=== PATIENT | female | born 1995 | race American Indian/Alaskan Native ===

== ENCOUNTER 2017-05-16 23:13 | Inpatient (IN) | payer MEDICAID ==
[2017-05-17] MEDS ORDERED: PITOCin/NS 20 UNIT/1000ML DRIP 20,000 MILLIUNITS/1,000 ML BAG IV ONE (00:41)
[2017-05-17] MEDS ORDERED: REGLAN ONE ×2 (00:41→05:39)
[2017-05-17] MEDS ORDERED: LACTATED RINGERS 2,000 ML ONE (00:41)
[2017-05-17] MEDS ORDERED: BICITRA ONE (00:41)
[2017-05-17] MEDS ORDERED: PEPCID IV ONE ×2 (00:42→00:48)
[2017-05-17] MEDS ORDERED: ANCEF/STERILE WATER 2 GM/20 ML 2 GM/20 ML SYRINGE IV ONE (00:42)
[2017-05-17] MEDS ORDERED: BICITRA PO ONE (00:48)
[2017-05-17] MEDS ORDERED: REGLAN IV ONE (00:48)
[2017-05-17] MEDS ORDERED: PITOCin/NS 20 UNIT/1000ML DRIP 20 UNITS/1,000 ML BAG IV SCH ×2 (01:00→04:00)
[2017-05-17] MEDS ORDERED: ANCEF/STERILE WATER 2 GM/20 ML 2 GM/20 ML SYRINGE IV NR (01:00)
[2017-05-17] MEDS ORDERED: LACTATED RINGERS 1,000 ML IV SCH (01:00)
[2017-05-17 01:06] LABS: Basophils % (Auto) 0.2 % (0.0-1.8); Eosinophils % (Auto) 0.4 % (0.0-4.3); Hematocrit 31.1 % (30.3-42.9); Hemoglobin 10.1 gm/dl (10.1-14.3); Mean Corpuscular HGB Conc 33 % (30-34); Mean Corpuscular Hemoglobin 27 pg (28-32); Mean Corpuscular Volume 84 fl (79-97); Platelet Count 191 K/mm3 (140-440); Red Blood Count 3.71 M/mm3 (3.65-5.03); Red Cell Distribution Width 15.3 % (13.2-15.2); White Blood Count 10.8 K/mm3 (4.5-11.0)
--- NOTE | 2017-05-17 01:59 | History and Physical Report ---
History of Present Illness Date of examination: 05/17/17 Date of admission: 05/17/17 00:50 Chief complaint: Labor History of present illness: Pt is a 22yo BF EDC 05/26/17; EGA 38 5/7 weeks presents to L&D complaining of RUC's q 2-3 mins. She was scheduled for a Repeat C Section 05/19/17 but since she is currently in labor, we will proceed with her C Section now. She received care at [facility], however records are not available and GBS is unknown. Past History Past Medical History: no pertinent history Past Surgical History: section Social history: no significant social history, single - Obstetrical History Expected Date of Delivery: 05/26/17 Actual Gestation: 38 Week(s) 5 Day(s) : 3 Medications and Allergies Allergies Allergy/AdvReac Type Severity Reaction Status Date / Time No Known Allergies Allergy Verified 05/13/13 18:03 Home Medications Medication Instructions Recorded Confirmed Last Taken Type Vit/Iron Fum/Folic AC 1 each PO QDAY #90 tablet 04/05/13 11/12/1311/11 08:00 Rx [ Vitamin Tablet] Ahn062/Iron Fum/Folic/Docusate 1 each PO QDAY #30 tablet 11/13/13 Unknown Rx [ 19 Tablet] Clindamycin [Clindamycin CAP] 600 mg PO BID #28 capsule 02/18/15 Unknown Rx ALBUTEROL Inhaler [ProAir HFA 2 puff IH QID PRN #1 inhalation 12/01/15 Unknown Rx Inhaler] Acetaminophen [Tylenol] 1,000 mg PO Q6HR #30 tablet 12/01/15 Unknown Rx Vit-Fe Fumar-FA [ 1 tab PO QDAY #30 tablet 12/01/15 Unknown Rx Vitamin] Ferrous Sulfate [Feosol 325 MG tab] 325 mg PO BID #60 tablet 05/17/17 Unknown Rx HYDROcodone/APAP 5-325 [[place] 1 each PO Q6HR PRN #30 tablet 05/17/17 Unknown Rx 5/325] Ibuprofen [Motrin] 800 mg PO Q8HR PRN #30 tablet 05/17/17 Unknown Rx Vit Calc,Iron,Folic 1 each PO DAILY #30 tablet 05/17/17 Unknown Rx [ Vitamins] Active Meds: Active Medications Lactated Ringer's (Lactated Ringers) 1,000 mls @ 2,250 mls/hr IV PREOP DONNA Stop: 05/18/17 01:27 Last Admin: 05/17/17 01:00 Dose: 2,250 mls/hr Oxytocin/Sodium Chloride (Pitocin/Ns 20 Unit/1000ml Drip) 20 units in 1,000 mls @ 0 mls/hr IV TITR DONNA PRN Reason: As Directed Review of Systems All systems: negative - Vital Signs Vital signs: Vital Signs Temp Resp 98.0 F 18 05/16/17 23:45 05/16/17 23:45 Temp Pulse Resp BP Pulse Ox 98.0 F 300 H 18 82 L 05/16/17 23:45 05/17/17 01:55 05/16/17 23:45 05/17/17 01:55 - Physical Exam Breasts: Positive: deferred Cardiovascular: Regular rate Lungs: Positive: Clear to auscultation Abdomen: Positive: normal appearance Genitourinary (Female): Positive: normal external genitalia Vagina: Positive: normal moisture Uterus: Positive: enlarged Extremities: Positive: normal - Obstetrical FHR: category 1 Uterine Contraction Monitor Mode: External Cervical Dilatation: 1.5 Cervical Effacement Percentage: 50 station: -2 Uterine Contraction Pattern: Regular Uterine Tone Measurement Phase: Contraction Uterine Contraction Intensity: Strong/Firm Results Result Diagrams: 05/17/17 00:53 Abnormal lab results 05/17/17 Range/Units 00:53 MCH 27 L (28-32) pg RDW 15.3 H (13.2-15.2) % Seg Neutrophils % 72.3 H (40.0-70.0) % Seg Neutrophils # 7.8 H (1.8-7.7) K/mm3 All other labs normal. Assessment and Plan - Patient Problems (1) 38 weeks gestation of Onset Date: 05/17/17 Current Visit: Yes Status: Acute Plan to address problem: A: IUP @ 38 5/7 weeks in labor Previous C Section x 2 P: Admit to L&D for repeat C Section Obtain Medical records (2) Previous section Onset Date: 05/17/17 Current Visit: No Status: Acute
[2017-05-17] MEDS ORDERED: WATER FOR IRRIG STERILE IR ONE (02:00)
[2017-05-17] MEDS ORDERED: NACL 0.9% IR ONE (02:00)
[2017-05-17] MEDS ORDERED: MORPHINE ONE (02:46)
[2017-05-17] MEDS ORDERED: TORADOL ONE (03:14)
[2017-05-17] MEDS ORDERED: NORCO 5/325 PO PRN (03:55)
[2017-05-17] MEDS ORDERED: SENOKOT PO PRN (03:55)
[2017-05-17] MEDS ORDERED: MILK OF MAGNESIA PO PRN (03:55)
[2017-05-17] MEDS ORDERED: TORADOL IV PRN (03:55)
[2017-05-17] MEDS ORDERED: TUCKS PAD TP PRN (03:55)
[2017-05-17] MEDS ORDERED: NARCAN 0.4 MG/1 ML IV PRN (03:55)
[2017-05-17] MEDS ORDERED: LANSINOH TP PRN (03:55)
[2017-05-17] MEDS ORDERED: PHENERGAN PR PRN (03:55)
[2017-05-17] MEDS ORDERED: TYLENOL PO PRN (03:55)
[2017-05-17] MEDS ORDERED: ZOFRAN IV PRN (03:55)
--- NOTE | 2017-05-17 03:55 | Operative Report ---
Operative Report Operative Report: Date of procedure: 05/17/2017 Pre-operative diagnosis: 1. Intrauterine at 38-5/7 weeks in labor 2. Previous 2 Post-operative diagnosis: Same Procedure name(s): Repeat low transverse section Surgeon: Tyler Chi MD Railroad Conductor: None Anesthesia: Spinal anesthesia by Dr. Liang EBL: 500 mL Findings: A 2790 g male Apgars 8 at 1 minute and 9 at 5 minutes. Clear amniotic fluid. Normal uterus. Normal tubes and ovaries bilaterally. Procedure: After the patient was prepped and draped in usual sterile fashion, and after satisfactory level of epidural anesthesia was obtained, the skin knife was used to make a transverse skin incision through the previous skin scars. The incision was excised down to layer of the fascia, which was nicked in the midline and extended laterally using the Bovie cautery. The rectus muscles were dissected off the rectus fascia both superiorly and inferiorly. The rectus bellies in the midline, and the peritoneum was entered under direct visualization. The peritoneal incision was extended superiorly and inferiorly. A bladder flap was created and the bladder blade was then placed. The uterus was scored in a curvilinear linear fashion, entered in the midline revealing clear amniotic fluid. The infant's head was delivered onto the surgical field, and the oropharynx and nasopharynx were bulb suctioned. The rest of the 's body was delivered, cord was doubly clamped and cut and the infant was handed to the waiting respiratory team. Cord blood was then obtained. The placenta was manually removed from the uterus, and the uterus removed from its normal anatomical position. After gentle uterine lavage, the incision was inspected and found to be without extensions. It was then closed in 2 layers using 0 Vicryl suture in a running interlocking fashion, the second layer imbricating the first. After good hemostasis was achieved, copious amounts or irrigation was performed, and the gutters were suctioned free of blood and blood clots. The Tisseel sealant was sprayed across the uterine incision. The uterus was then returned to its normal anatomical position, and after excellent hemostasis assured, the peritoneum was re-approximated using 3- 0 Vicryl suture in a running interlocking fashion, and then the rectus muscles were re-approximated using 3-0 Vicryl suture in a [id number] configuration. The fascia was then re-approximated using 0 Vicryl suture in running interlocking fashion. The subcutaneous layer was made hemostatic using Bovie cautery, the Tisseel sealant was sprayed across the fascial incision and the skin edges re-approximated using 4-0 Vicryl suture in a sub-cuticular fashion. Patient tolerated the procedure well was transported to recovery in stable condition.
[2017-05-17] MEDS ORDERED: SODIUM CHLORIDE FLUSH SYRINGE 10 ML IV PRN (04:00)
[2017-05-17] MEDS ORDERED: D5LR 1,000 ML IV SCH (04:00)
[2017-05-17] MEDS ORDERED: REGLAN PO NR (06:00)
[2017-05-17] MEDS: ANCEF/NS 1 GM/50 ML 1 GM/50 ML BAG IV SCH ×2 (10:30→17:43)
[2017-05-17] MEDS: BENADRYL IV PRN ×2 (12:30→23:31)
[2017-05-17] MEDS: PROVENTIL IH PRN (14:51)
[2017-05-17 15:29] LABS: Hematocrit 26.1 % (30.3-42.9); Hemoglobin 8.9 gm/dl (10.1-14.3)
[2017-05-17] MEDS: FEOSOL PO SCH (23:31)
[2017-05-17] MEDS: MOTRIN PO PRN (23:31)
[2017-05-18] MEDS ORDERED: M-M-R II VACCINE SUB-Q ONE (03:57)
[2017-05-18] MEDS: MOTRIN PO PRN ×3 (05:44→23:52)
[2017-05-18] MEDS ORDERED: BOOSTRIX IM ONE (06:00)
--- NOTE | 2017-05-18 11:23 | Progress Note ---
Assessment and Plan - Patient Problems (1) 38 weeks gestation of Onset Date: 05/17/17 Current Visit: Yes Status: Resolved (2) Previous section Onset Date: 05/17/17 Current Visit: No Status: Resolved (3) Status post repeat low transverse section Onset Date: 05/18/17 Current Visit: No Status: Resolved Plan to address problem: A: S/P Repeat C Section - POD #1 Doing well Asymptomatic anemia - stable P: Continue RPOC Anticipate discharge to home in 24-48hrs Subjective - Subjective Date of service: 05/18/17 Principal diagnosis: s/p Repeat C Section - POD #1 Interval history: Pt is feeling well without complaints. Bleeding improved, and she is tolerating a reg diet without nausea or vomiting. Patient reports: appetite normal, voiding normally, pain well controlled, flatus , ambulating normally : doing well, bottle feeding Objective - Vital Signs Latest vital signs: Vital Signs Temp Pulse Pulse Resp Resp BP BP 05/18/17 08:08 98.2 F 76 18 109/55 05/18/17 06:44 18 05/18/17 05:44 18 05/18/17 02:13 98.7 F 05/18/17 00:31 18 05/17/17 23:31 18 05/17/17 23:26 99.7 F H 81 18 105/65 05/17/17 20:53 97.4 F L 83 18 05/17/17 16:40 98.0 F 85 18 105/57 05/17/17 14:58 82 14 05/17/17 14:50 71 16 05/17/17 12:25 98.7 F 75 18 100/47 BP Pulse Ox 05/18/17 08:08 99 05/18/17 06:44 05/18/17 05:44 05/18/17 02:13 05/18/17 00:31 05/17/17 23:31 05/17/17 23:26 99 05/17/17 20:53 98/56 99 05/17/17 16:40 05/17/17 14:58 05/17/17 14:50 05/17/17 12:25 Intake and Output 05/17/17 05/18/17 05/18/17 22:59 06:59 14:59 Intake Total 120 240 Output Total 1150 Balance 120 -910 Intake: Oral 120 Intake, Free Water 240 Output: Urine 1150 Void 1150 Other: Total, Intake Amount 120 Total, Output Amount 500 # Voids Void 1 - Exam Cardiovascular: Present: Regular rate Lungs: Present: Clear to auscultation Abdomen: Present: normal appearance, soft Uterus: Present: normal, firm, fundal height below umbilicus Extremities: Present: normal Incision: Present: normal, dry, intact, dressed - Labs Labs: Abnormal lab results 05/17/17 Range/Units 15:06 Hgb 8.9 L (10.1-14.3) gm/dl Hct 26.1 L (30.3-42.9) % Laboratory Tests 05/17/17 05/17/17 05/17/17 00:53 00:53 15:06 WBC 10.8 RBC 3.71 Hgb 10.1 8.9 L Hct 31.1 26.1 L MCV 84 MCH 27 L MCHC 33 RDW 15.3 H Plt Count 191 Lymph % (Auto) 20.4 [place] % (Auto) 6.7 Eos % (Auto) 0.4 Baso % (Auto) 0.2 Lymph # 2.2 Evans # 0.7 Eos # 0.0 Baso # 0.0 Seg Neutrophils % 72.3 H Seg Neutrophils # 7.8 H Blood Type O POSITIVE Antibody Screen Negative
[2017-05-18] MEDS: PERCOCET 5/325 PO PRN (14:43)
[2017-05-18] MEDS: MYLICON PO PRN (14:43)
[2017-05-18] MEDS: PRENATAL VITAMIN PO SCH (14:43)
[2017-05-18] MEDS: FEOSOL PO SCH (23:52)
[2017-05-19] MEDS: MOTRIN PO PRN ×2 (05:52→17:57)
--- NOTE | 2017-05-19 08:07 | Progress Note ---
Assessment and Plan A: S/P Repeat C Section - POD #2 Doing well Asymptomatic anemia - stable P: Continue RPOC Anticipate discharge to home in 24-48hrs - Patient Problems (1) Status post repeat low transverse section Onset Date: 05/18/17 Current Visit: No Status: Resolved Subjective - Subjective Date of service: 05/19/17 Principal diagnosis: s/p Repeat C Section - POD #2 Interval history: Patient seen and examined, stable doing well with no issues Patient reports: appetite normal, voiding normally, pain well controlled, flatus , ambulating normally, no dizzy ambulation, no nauseated [place]: doing well Objective - Vital Signs Latest vital signs: Vital Signs Temp Pulse Resp BP BP Pulse Ox 05/19/17 06:23 18 05/19/17 05:52 18 05/19/17 01:33 98.2 F 69 16 104/66 99 05/19/17 00:52 18 05/18/17 23:52 18 05/18/17 16:14 98.2 F 79 20 115/70 99 05/18/17 11:45 98.2 F 81 20 116/71 98 05/18/17 08:08 98.2 F 76 18 109/55 99 Intake and Output 05/18/17 05/19/17 05/19/17 23:59 07:59 15:59 Intake Total 240 840 Balance 240 840 Intake: Oral 120 480 Intake, Free Water 120 360 Other: Total, Intake Amount 120 480 # Voids Void 1 1 - Exam Abdomen: Present: normal appearance, soft. Absent: distention, tenderness, guarding, rigidity Extremities: Present: normal Incision: Present: dry, intact
--- NOTE | 2017-05-19 08:09 | Discharge Summary ---
Providers - Providers Date of Admission: 05/17/17 00:50 Date of discharge: 05/20/17 Attending physician: REKHA RAMIREZ Primary care physician: REKHA RAMIREZ Hospitalization Reason for admission: active labor, section Delivery: Procedure: repeat low transverse Incision: dry, intact Other procedures: none complications: none Discharge diagnosis: IUP at term delivered [place] baby: male Hospital course: Uncomplicated postoperative course Condition at discharge: Good Disposition: DC-01 TO HOME OR SELFCARE - Discharge Diagnoses (1) Status post repeat low transverse section Status: Resolved Plan - Discharge Medications Prescriptions: Ferrous Sulfate [Feosol 325 MG tab] 325 mg PO BID #60 tablet HYDROcodone/APAP 5-325 [[place] 5/325] 1 each PO Q6HR PRN #30 tablet PRN Reason: Pain Ibuprofen [Motrin] 800 mg PO Q8HR PRN #30 tablet PRN Reason: Moder Pain Unrelieved By [place] Vit Calc,Iron,Folic [ Vitamins] 1 each PO DAILY #30 tablet - Provider Discharge Summary Activity: no sex for 6 weeks, no heavy lifting 4 weeks, no strenuous exercise Diet: routine Additional instructions: [] Smoking cessation referral if applicable(refer to patient education folder for contact #) [] Refer to [facility]'s [facility] Booklet Call your doctor immediately for: * Fever > 100.5 * Heavy vaginal bleeding ( >1 pad per hour) * Severe persistent headache * Shortness of breath * Reddened, hot, painful area to leg or breast * Drainage or odor from incision. * Keep incision clean and dry at all times and follow doctor's instructions regarding bathing/showering - Follow up plan Follow up: REKHA RAMIREZ MD [Primary Care Provider] - 7 Days Forms: [facility] Discharge Summary, Discharge Signature Page
[2017-05-19] MEDS: PERCOCET 5/325 PO PRN ×2 (09:52→17:56)
[2017-05-19] MEDS: FEOSOL PO SCH (09:54)
[2017-05-19] MEDS: PRENATAL VITAMIN PO SCH (09:54)
[2017-05-19] MEDS: MYLICON PO PRN (17:55)
[2017-05-20] MEDS: MOTRIN PO PRN ×3 (00:12→13:30)
[2017-05-20] MEDS: PERCOCET 5/325 PO PRN ×3 (00:12→13:29)
[2017-05-20] MEDS: PRENATAL VITAMIN PO SCH (09:18)
[2017-05-20] MEDS: FEOSOL PO SCH (09:18)
[2017-05-20] MEDS: PROVENTIL IH PRN (09:46)
[2017-05-20 19:00] VITALS: BP 110/73
== END 2017-05-20 14:00 | disposition home or self-care (01) | DRG 766 ==
LOC: TRG 23:13 → APU 05-17 00:50 → OB 05-17 06:47
PROVIDERS: ADMIT Obstetrics & Gynecology; ATTEND Obstetrics & Gynecology
PROC: 10D00Z1 Extraction of Products of Conception, Low, Open Approach (ICD-10-PCS; principal; 2017-05-17)
PROC: 3E0234Z Introduction of Serum, Toxoid and Vaccine into Muscle, Percutaneous Approach (ICD-10-PCS; 2017-05-18)
DX: O34.211 Maternal care for low transverse scar from previous cesarean delivery (principal); Z3A.38 38 weeks gestation of pregnancy; Z37.0 Single live birth; O90.81 Anemia of the puerperium; D64.9 Anemia, unspecified; Z23 Encounter for immunization
CPT/HCPCS: 36415; 85014; 85018; 85025; 86850; 86900; 86901; 90471; 90707; 90715; 94640; 99211; C9250; G0463; J0690; J1200; J1885; J2270; J2405; J2590; J2765; J7120; J7121

== ENCOUNTER 2017-12-03 20:20 | Emergency (ER) | payer MEDICAID ==
[2017-12-03 21:01] VITALS: BP 117/73
[2017-12-03 21:20] LABS: Basophils % (Auto) 0.4 % (0.0-1.8); Eosinophils # (Auto) 0.1 K/mm3 (0.0-0.4); Eosinophils % (Auto) 0.8 % (0.0-4.3); Hematocrit 36.4 % (30.3-42.9); Hemoglobin 11.7 gm/dl (10.1-14.3); Lymphocytes # (Auto) 2.2 K/mm3 (1.2-5.4); Mean Corpuscular HGB Conc 32 % (30-34); Mean Corpuscular Hemoglobin 26 pg (28-32); Mean Corpuscular Volume 81 fl (79-97); Monocytes # (Auto) 0.4 K/mm3 (0.0-0.8); Platelet Count 300 K/mm3 (140-440); Red Blood Count 4.51 M/mm3 (3.65-5.03); Red Cell Distribution Width 14.4 % (13.2-15.2)
[2017-12-03 21:39] LABS: BUN/Creatinine Ratio 17; Blood Urea Nitrogen 10 mg/dL (7-17); Calcium 9.2 mg/dL (8.4-10.2); Hemolysis Index 2
== END 2017-12-03 23:00 | disposition left against medical advice (07) ==
LOC: ED 20:20
DX: R07.9 Chest pain, unspecified (principal); Z53.21 Procedure and treatment not carried out due to patient leaving prior to being seen by health care provider
CPT/HCPCS: 36415; 80048; 84484; 85025; 93005; 93010

== ENCOUNTER 2019-05-17 22:24 | Emergency (ER) | payer SELFPAY ==
--- NOTE | 2019-05-17 22:31 | Emergency Department Report ---
Blank Doc - Documentation Documentation: 24-year-old female that is 14 weeks with vaginal discharge and pelvic pain. Denies any vaginal bleeding. Does follow-up with OB and had ultrasound that was normal. This initial assessment/diagnostic orders/clinical plan/treatment(s) is/are subject to change based on patient's health status, clinical progression and re- assessment by fellow clinical providers in the ED. Further treatment and workup at subsequent clinical providers discretion. Patient/guardians urged not to elope from the ED as their condition may be serious if not clinically assessed and managed. Initial orders include: 1- Patient sent to [facility] for further evaluation and treatment 2- pelvic exam to be done 3- UA
[2019-05-17 23:28] LABS: Bilirubin,Urine NEG (Negative); Blood,Urine NEG (Negative); Color,Urine Straw (Yellow); Mucus,Urine FEW /HPF; Protein,Urine <15 mg/dL mg/dL (Negative); Urobilinogen,Urine < 2.0 mg/dL (<2.0)
[2019-05-18] MEDS ORDERED: ACETAMINOPHEN 325 MG TAB PO ONE (00:37)
[2019-05-18] MEDS ORDERED: ONDANSETRON 4 MG/2 ML INJ IV ONE (00:37)
--- NOTE | 2019-05-18 00:38 | Emergency Department Report ---
ED General Adult HPI - General Chief complaint: Abdominal Pain Stated complaint: ABDOMINAL PAIN/VOMITTING BLOOD Time Seen by Provider: 05/17/19 22:30 Source: patient, RN notes reviewed Mode of arrival: Ambulatory Limitations: No Limitations - History of Present Illness Initial comments: This is a 24-year-old female. This patient is not known to this provider previously. 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 She is 5, para 3. Last menstrual period is February 03. Presents to the ER with a complaint of right lower quadrant pain that radiates to the back. This is associated with nonbloody, nonbilious emesis 2. No fever. No complaint of vaginal discharge to this provider. No urinary symptoms. She's not had pain like this in the past. To me, she makes no complaint of vomiting blood or defecating blood. -: Gradual Location: abdomen Radiation: back, flank Quality: aching Consistency: intermittent Improves with: rest Worsens with: movement - Related Data Previous Rx's Medication Instructions Recorded Last Taken Type Vit/Iron Fum/Folic AC 1 each PO QDAY #90 tablet 04/05/13 11/11/13 08:00 Rx [ Vitamin Tablet] Leh689/Iron Fum/Folic/Docusate 1 each PO QDAY #30 tablet 11/13/13 Unknown Rx [ 19 Tablet] Clindamycin [Clindamycin CAP] 600 mg PO BID #28 capsule 02/18/15 Unknown Rx ALBUTEROL Inhaler (OR & NICU) 2 puff IH QID PRN #1 inhalation 12/01/15 Unknown Rx [ProAir HFA Inhaler] Acetaminophen [Tylenol] 1,000 mg PO Q6HR #30 tablet 12/01/15 Unknown Rx Vit-Fe Fumar-FA [ 1 tab PO QDAY #30 tablet 12/01/15 Unknown Rx Vitamin] Ferrous Sulfate [Feosol 325 MG tab] 325 mg PO BID #60 tablet 05/17/17 Unknown Rx Vit Calc,Iron,Folic 1 each PO DAILY #30 tablet 05/17/17 Unknown Rx [ Vitamins] Acetaminophen [Non-Aspirin Extra 500 mg PO Q6HR PRN #30 tablet 05/18/19 Unknown Rx Strength] Doxylamine Succinate/Vit B6 1 each PO QHS PRN #30 tablet. 05/18/19 Unknown Rx [Arie Woodall 10-10 mg Tablet] Nicole Root [Nicole] 250 mg PO QID PRN #30 capsule 05/18/19 Unknown Rx Allergies Allergy/AdvReac Type Severity Reaction Status Date / Time ibuprofen Allergy Swelling Verified 12/03/17 21:04 OF THE EYES ED Review of Systems ROS: Stated complaint: ABDOMINAL PAIN/VOMITTING BLOOD Other details as noted in HPI Constitutional: denies: fever Eyes: denies: eye discharge ENT: denies: congestion Respiratory: denies: wheezing Cardiovascular: denies: chest pain Gastrointestinal: abdominal pain, nausea, vomiting Genitourinary: denies: dysuria, frequency, hematuria Musculoskeletal: back pain Skin: denies: lesions Neurological: denies: weakness Psychiatric: anxiety Hematological/Lymphatic: denies: easy bleeding ED Past Medical Hx - Past Medical History Hx Hypertension: No Hx Congestive Heart Failure: No Hx Diabetes: No Hx Deep Vein Thrombosis: No Hx Renal Disease: No Hx Sickle Cell Disease: No Hx Seizures: No Hx Asthma: Yes (albuterol inhaler -1 wk ago) Hx COPD: No Hx HIV: No - Surgical History Additional Surgical History: x2 - Social History Smoking Status: Never Smoker Substance Use Type: None - Medications Home Medications: Home Medications Medication Instructions Recorded Confirmed Last Taken Type Vit/Iron Fum/Folic AC 1 each PO QDAY #90 tablet 04/05/13 11/12/13 11/11/13 08:00 Rx [ Vitamin Tablet] [id number]/Iron Fum/Folic/Docusate 1 each PO QDAY #30 tablet 11/13/13 Unknown Rx [ 19 Tablet] Clindamycin [Clindamycin CAP] 600 mg PO BID #28 capsule 02/18/15 Unknown Rx ALBUTEROL Inhaler (OR & NICU) 2 puff IH QID PRN #1 inhalation 12/01/15 Unknown Rx [ProAir HFA Inhaler] Acetaminophen [Tylenol] 1,000 mg PO Q6HR #30 tablet 12/01/15 Unknown Rx Vit-Fe Fumar-FA [ 1 tab PO QDAY #30 tablet 12/01/15 Unknown Rx Vitamin] Ferrous Sulfate [Feosol 325 MG tab] 325 mg PO BID #60 tablet 05/17/17 Unknown Rx Vit Calc,Iron,Folic 1 each PO DAILY #30 tablet 05/17/17 Unknown Rx [ Vitamins] Acetaminophen [Non-Aspirin Extra 500 mg PO Q6HR PRN #30 tablet 05/18/19 Unknown Rx Strength] Doxylamine Succinate/Vit B6 1 each PO QHS PRN #30 tablet. 05/18/19 Unknown Rx [Dicisigis Dr 10-10 mg Tablet] Nicole Root [Nicole] 250 mg PO QID PRN #30 capsule 05/18/19 Unknown Rx ED Physical Exam - General Limitations: No Limitations General appearance: alert, in no apparent distress - Head Head exam: Present: atraumatic, normocephalic - Eye Eye exam: Present: normal appearance, EOMI. Absent: nystagmus - ENT ENT exam: Present: normal exam, normal orophraynx, mucous membranes moist, normal external ear exam - Neck Neck exam: Present: normal inspection, full ROM. Absent: tenderness, meningismus - Respiratory Respiratory exam: Present: normal lung sounds bilaterally. Absent: respiratory distress - Cardiovascular Cardiovascular Exam: Present: regular rate, normal rhythm, normal heart sounds. Absent: bradycardia, tachycardia, irregular rhythm, systolic murmur, diastolic murmur, rubs, gallop - GI/Abdominal GI/Abdominal exam: Present: soft, tenderness, normal bowel sounds, other (there is no right upper quadrant tenderness. There is right lower quadrant tenderness. There is no rebound. There is negative Rovsing sign.). Absent: distended, guarding, rebound, rigid, pulsatile mass - Extremities Exam Extremities exam: Present: normal inspection, full ROM, other (2+ pulses noted in the bilateral upper, lower extremities. There is no long bone tenderness. Musculoskeletal compartments are soft. The pelvis is stable.). Absent: pedal edema, calf tenderness - Back Exam Back exam: Present: normal inspection, full ROM. Absent: tenderness, CVA tenderness (R), CVA tenderness (L), paraspinal tenderness, vertebral tenderness - Neurological Exam Neurological exam: Present: alert, oriented X3, other (there is no facial droop. The tongue is midline. Extraocular movements are intact bilaterally. Patient speaking in full complete sentences. Shoulder shrug is intact bilaterally. Hearing is grossly intact bilaterally. Visual acuity intact to finger counting and color perception at a close distance. 5/5 strength 4 extremities. Sensation intact to light touch in 4 extremities.). Absent: motor sensory deficit - Psychiatric Psychiatric exam: Present: normal affect, normal mood - Skin Skin exam: Present: warm, dry, intact, normal color. Absent: rash ED Course Vital Signs 05/17/19 05/18/19 22:31 00:50 Temperature 98.7 F Pulse Rate 79 Respiratory 18 18 Rate Blood Pressure 118/77 O2 Sat by Pulse 100 Oximetry - Reevaluation(s) Reevaluation #1: 05/18/19 01:36 Differential diagnosis, including not limited to: Constipation, ovarian cyst, urinary tract infection, renal colic, appendicitis, round ligament pain, ovarian torsion Assessment and plan: 24-year-old female with right lower quadrant pain that radiates to the back, nausea and vomiting. She is afebrile with reassuring vital signs. She is right lower quadrant tenderness. She is tolerating liquid feeds, and pain was somewhat improved after Tylenol. Does not have a leukocytosis, fever, lactic acidosis. Urinalysis not consistent with urinary tract infection. Patient had ultrasound performed of right flank, right lower quadrant, and obstetrics related study. Interpretation is pending at this time. Reevaluation #2: 05/18/19 02:50 Patient reassessed multiple times. Belly is soft on repeat examination. She is requesting water. Ultrasound shows no surgical abnormalities at this time. The health information technologist communicated to me that while performing her ul trasound, the patient did have reproducible lower abdominal tenderness when the probe was applied to the portion of the uterus to be hypoechoic segment. The radiologist's interpretation is reviewed and appreciated. The patient is counseled to closely follow up with her outpatient [facility] doctor for these incidental findings. She indicates that she is reliable to follow-up. At this point in time, based off of the improved exam with acetaminophen, lack of fever, unremarkable laboratory studies, aforementioned ultrasound findings, I think appendicitis is very unlikely at this time. ED Medical Decision Making - Lab Data Result diagrams: 05/18/19 00:40 05/18/19 00:40 Vital Signs 05/17/19 05/18/19 22:31 00:50 Temperature 98.7 F Pulse Rate 79 Respiratory 18 18 Rate Blood Pressure 118/77 O2 Sat by Pulse 100 Oximetry Lab Results 05/17/19 05/18/19 05/18/19 Range/Units 22:53 00:40 00:40 WBC 8.5 (4.5-11.0) K/mm3 RBC 3.74 (3.65-5.03) M/mm3 Hgb 10.8 (10.1-14.3) gm/dl Hct 32.5 (30.3-42.9) % MCV 87 (79-97) fl MCH 29 (28-32) pg MCHC 33 (30-34) % RDW 16.4 H (13.2-15.2) % Plt Count 245 (140-440) K/mm3 Lymph % (Auto) 25.2 (13.4-35.0) % Carlton % (Auto) 5.0 (0.0-7.3) % Eos % (Auto) 0.6 (0.0-4.3) % Baso % (Auto) 0.3 (0.0-1.8) % Lymph # 2.1 (1.2-5.4) K/mm3 Carlton # 0.4 (0.0-0.8) K/mm3 Eos # 0.1 (0.0-0.4) K/mm3 Baso # 0.0 (0.0-0.1) K/mm3 Seg Neutrophils % 68.9 (40.0-70.0) % Seg Neutrophils # 5.9 (1.8-7.7) K/mm3 PT 14.7 (12.2-14.9) Sec. INR 1.16 H (0.87-1.13) APTT 27.4 (24.2-36.6) Sec. Sodium (137-145) mmol/L Potassium (3.6-5.0) mmol/L Chloride (98-107) mmol/L Carbon Dioxide (22-30) mmol/L Anion Gap mmol/L BUN (7-17) mg/dL Creatinine (0.7-1.2) mg/dL Estimated GFR ml/min BUN/Creatinine Ratio % Glucose (65-100) mg/dL Lactic Acid (0.7-2.0) mmol/L Calcium (8.4-10.2) mg/dL Magnesium (1.7-2.3) mg/dL Total Bilirubin (0.1-1.2) mg/dL AST (5-40) units/L ALT (7-56) units/L Alkaline Phosphatase (35-129) units/L Albumin (3.9-5) g/dL Lipase (13-60) units/L Urine Color Straw (Yellow) Urine Turbidity Clear (Clear) Urine pH 7.0 (5.0-7.0) Ur Specific [place] 1.005 (1.003-1.030) Urine Protein <15 mg/dl (Negative) mg/dL Urine Glucose (UA) Neg (Negative) mg/dL Urine Ketones Neg (Negative) mg/dL Urine Blood Neg (Negative) Urine Nitrite Neg (Negative) Urine Bilirubin Neg (Negative) Urine Urobilinogen < 2.0 (<2.0) mg/dL Ur Leukocyte Esterase Neg (Negative) Urine WBC (Auto) 2.0 (0.0-6.0) /HPF Urine RBC (Auto) 1.0 (0.0-6.0) /HPF U Epithel Cells (Auto) < 1.0 (0-13.0) /HPF Urine Mucus Few /HPF 05/18/19 05/18/19 Range/Units 00:40 00:40 WBC (4.5-11.0) K/mm3 RBC (3.65-5.03) M/mm3 Hgb (10.1-14.3) gm/dl Hct (30.3-42.9) % MCV (79-97) fl MCH (28-32) pg MCHC (30-34) % RDW (13.2-15.2) % Plt Count (140-440) K/mm3 Lymph % (Auto) (13.4-35.0) % Carlton % (Auto) (0.0-7.3) % Eos % (Auto) (0.0-4.3) % Baso % (Auto) (0.0-1.8) % Lymph # (1.2-5.4) K/mm3 Carlton # (0.0-0.8) K/mm3 Eos # (0.0-0.4) K/mm3 Baso # (0.0-0.1) K/mm3 Seg Neutrophils % (40.0-70.0) % Seg Neutrophils # (1.8-7.7) K/mm3 PT (12.2-14.9) Sec. INR (0.87-1.13) APTT (24.2-36.6) Sec. Sodium 136 L (137-145) mmol/L Potassium 3.8 (3.6-5.0) mmol/L Chloride 100.6 (98-107) mmol/L Carbon Dioxide 26 (22-30) mmol/L Anion Gap 13 mmol/L BUN 8 (7-17) mg/dL Creatinine 0.6 L (0.7-1.2) mg/dL Estimated GFR > 60 ml/min BUN/Creatinine Ratio 13 % Glucose 95 (65-100) mg/dL Lactic Acid 0.70 (0.7-2.0) mmol/L Calcium 9.2 (8.4-10.2) mg/dL Magnesium 1.60 L (1.7-2.3) mg/dL Total Bilirubin < 0.20 (0.1-1.2) mg/dL AST 16 (5-40) units/L ALT 8 (7-56) units/L Alkaline Phosphatase 60 (35-129) units/L Albumin 3.9 (3.9-5) g/dL Lipase 33 (13-60) units/L Urine Color (Yellow) Urine Turbidity (Clear) Urine pH (5.0-7.0) Ur Specific [place] (1.003-1.030) Urine Protein (Negative) mg/dL Urine Glucose (UA) (Negative) mg/dL Urine Ketones (Negative) mg/dL Urine Blood (Negative) Urine Nitrite (Negative) Urine Bilirubin (Negative) Urine Urobilinogen (<2.0) mg/dL Ur Leukocyte Esterase (Negative) Urine WBC (Auto) (0.0-6.0) /HPF Urine RBC (Auto) (0.0-6.0) /HPF U Epithel Cells (Auto) (0-13.0) /HPF Urine Mucus /HPF - Radiology Data Radiology results: pending, report reviewed, image reviewed Print Report Referring Physician: PORFIRIO CASILLAS Patient Name: CRISTIAN CALVERT Date of : 1995 Sex: Female Report Date: 2019-05-18 Report Status: Finalized Findings [facility] [address] [place] [address] Ultrasound Report Signed Patient: CRISTIAN CALVERT MR#: [id number] : 1995 Acct:[id number] Age/Sex: 24 / F ADM Date: 05/17/19 Loc: ED Attending Dr: Ordering Physician: PORFIRIO CASILLAS MD Date of Service: 05/18/19 Procedure(s): US OB >= 14 weeks Fetus Accession Number(s): [id number] cc: PORFIRIO CASILLAS MD Limited obstetrical ultrasound INDICATION: , lower abdominal pain TECHNIQUE: Transabdominal FINDINGS: Early intrauterine is seen. In the limited views these shows no obvious abnormalities. Estimated gestational age is 14 weeks 5 days which matches clinical dating. Cardiac activity was documented with heart rate of 139 bpm. Amniotic fluid volume appears appropriate. Cervical length is 3.1 cm. Placenta is fundal. A small hypoechoic area measuring 18 mm along the inner margin of the placenta probably is not significant but follow-up is suggested. Ovaries show no significant abnormalities. Flow is seen bilaterally. No free fluid is seen. IMPRESSION: Intrauterine is seen without obvious abnormality in a limited survey. No acute abnormalities are obvious. A small hypoechoic area along the inner margin of the placenta is probably not significant but I would suggest follow-up. Signer Name: Ambrocio Patel MD Signed: 05/18/2019 2:39 AM Workstation Name: [id number] Transcribed By: GJ Dictated By: Ambrocio Patel MD Electronically Authenticated By: Ambrocio Patel MD Signed Date/Time: 05/18/19 0239 Print Report Referring Physician: PORFIRIO CASILLAS Patient Name: CRISTIAN CALVERT Date of : 1995 Sex: Female Report Date: 2019-05-18 Report Status: Finalized Findings [address] [address] Ultrasound Report Signed Patient: CRISTIAN CALVERT MR#: [id number] : 1995 Acct:[id number] Age/Sex: 24 / F ADM Date: 05/17/19 Loc: ED Attending Dr: Ordering Physician: PORFIRIO CASILLAS MD Date of Service: 05/18/19 Procedure(s): US abdomen limited Accession Number(s): [id number] cc: PORFIRIO CASILLAS MD ULTRASOUND ABDOMEN, LIMITED (RIGHT UPPER QUADRANT) INDICATION: lower abd pain , rlq pain COMPARISON: None available. LIMITATIONS: None FINDINGS: Pancreas: Visualized portion shows no significant abnormality. Liver: Normal. Gallbladder: Gallbladder is contracted. A small amount of sludge is seen. No wall thickening or obvious calculi are noted. Bile ducts: Normal. Common Bile Duct measures 2 mm. Right Kidney: Visualized portions show no abnormality. Free fluid: None. Additional Findings: Views of the right lower quadrant showed no abnormal fluid collections or masses. No dilated appendix is detected. IMPRESSION: No acute abnormalities are seen. Signer Name: Ambrocio Patel MD Signed: 05/18/2019 2:41 AM Workstation Name: [id number] Transcribed By: CHRISTOS Dictated By: Ambrocio Patel MD Electronically Authenticated By: Ambrocio Patel MD Signed Date/Time: 05/18/19 0241 Critical care attestation.: If time is entered above; I have spent that time in minutes in the direct care of this critically ill patient, excluding procedure time. ED Disposition Clinical Impression: Right lower quadrant abdominal pain during Disposition: DC-01 TO HOME OR SELFCARE Is pt being admited?: No Does the pt Need Aspirin: No Condition: Stable Additional Instructions: Advance diet as tolerated. Rest, avoid heavy lifting and strenuous physical activities. Take the pain medication, nausea medication as needed and/or directed. Ultrasound today demonstrated nonspecific abnormality in the placenta, please follow-up with your [facility] [facility] doctor for this for repeat checkup and evaluation within the next 2 days. Alternatively, the patient may return to this emergency room for repeat checkup and evaluation. Please return to the emergency room right away with projectile vomiting, change in mental status, confusion, inability to tolerate liquid feeds, new pain, worsened pain, migration of pain, or symptoms that were not initially present on the initial ER evaluation. Referrals: REKHA CHI MD [Staff Physician] - 3-5 Days
[2019-05-18] MEDS ORDERED: D5W/0.45% NACL 1,000 ML IV SCH (01:00)
[2019-05-18 01:02] LABS: Basophils % (Auto) 0.3 % (0.0-1.8); Eosinophils # (Auto) 0.1 K/mm3 (0.0-0.4); Eosinophils % (Auto) 0.6 % (0.0-4.3); Hematocrit 32.5 % (30.3-42.9); Hemoglobin 10.8 gm/dl (10.1-14.3); Lymphocytes # (Auto) 2.1 K/mm3 (1.2-5.4); Lymphocytes % (Auto) 25.2 % (13.4-35.0); Mean Corpuscular HGB Conc 33 % (30-34); Mean Corpuscular Volume 87 fl (79-97); Monocytes # (Auto) 0.4 K/mm3 (0.0-0.8); Platelet Count 245 K/mm3 (140-440); Red Blood Count 3.74 M/mm3 (3.65-5.03); Red Cell Distribution Width 16.4 % (13.2-15.2)
[2019-05-18 01:18] LABS: Alanine Aminotransferase 8 units/L (7-56); Albumin 3.9 g/dL (3.9-5); BUN/Creatinine Ratio 13; Blood Urea Nitrogen 8 mg/dL (7-17); Calcium 9.2 mg/dL (8.4-10.2); Hemolysis Index 1
[2019-05-18 01:20] LABS: INR 1.16 (0.87-1.13)
[2019-05-18 01:21] LABS: Partial Thromboplastin Time 27.4 Sec. (24.2-36.6)
[2019-05-18] MEDS ORDERED: MAGNESIUM OXIDE 400 MG TAB PO STA (01:30)
--- NOTE | 2019-05-18 02:44 | Ultrasound Report ---
Limited obstetrical ultrasound INDICATION: , lower abdominal pain TECHNIQUE: Transabdominal FINDINGS: Early intrauterine is seen. In the limited views these shows no obvious abnormali ties. Estimated gestational age is 14 weeks 5 days which matches clinical dating. Cardiac activity wa s documented with heart rate of 139 bpm. Amniotic fluid volume appears appropriate. Cervical le ngth is 3.1 cm. Placenta is fundal. A small hypoechoic area measuring 18 mm along the inner margin of the placenta probably is not significant but follow-up is suggested. Ovaries show no significant abnormalities. Flow is seen bilaterally. No free fluid is seen. IMPRESSION: Intrauterine is seen without obvious abnormality in a limited survey. No acute abnormalities are obvious. A small hypoechoic area along the inner margin of the placenta is pr obably not significant but I would suggest follow-up. Signer Name: Ambrocio Patel MD Signed: 05/18/2019 2:39 AM Workstation Name: [id number]
--- NOTE | 2019-05-18 02:45 | Ultrasound Report ---
ULTRASOUND ABDOMEN, LIMITED (RIGHT UPPER QUADRANT) INDICATION: lower abd pain , rlq pain COMPARISON: None available. LIMITATIONS: None FINDINGS: Pancreas: Visualized portion shows no significant abnormality. Liver: Normal. Gallbladder: Gallbladder is contracted. A small amount of sludge is seen. No wall thickening or obvio us calculi are noted. Bile ducts: Normal. Common Bile Duct measures 2 mm. Right Kidney: Visualized portions show no abnormality. Free fluid: None. Additional Findings: Views of the right lower quadrant showed no abnormal fluid collections or masses . No dilated appendix is detected. IMPRESSION: No acute abnormalities are seen. Signer Name: Ambrocio Patel MD Signed: 05/18/2019 2:41 AM Workstation Name: [id number]
[2019-05-18 02:51] VITALS: BP 95/52
== END 2019-05-18 03:00 | disposition home or self-care (01) ==
LOC: ED 22:24
DX: O26.891 Other specified pregnancy related conditions, first trimester (principal); R10.31 Right lower quadrant pain; O99.511 Diseases of the respiratory system complicating pregnancy, first trimester; O21.9 Vomiting of pregnancy, unspecified; J45.909 Unspecified asthma, uncomplicated; Z88.5 Allergy status to narcotic agent; Z79.899 Other long term (current) drug therapy; Z3A.12 12 weeks gestation of pregnancy
CPT/HCPCS: 36415; 76705; 76805; 80053; 81001; 82140; 83690; 83735; 84702; 85025; 85610; 85730; 86850; 86900; 86901; 96361; 96374; 99284; J2405

== ENCOUNTER 2019-06-28 15:56 | Outpatient (CLI) | payer MEDICAID ==
[2019-06-28] MEDS ORDERED: LACTATED RINGERS 500 ML IV ONE (17:04)
[2019-06-28 17:30] LABS: Bilirubin,Urine NEG (Negative); Blood,Urine LG (Negative); Color,Urine Yellow (Yellow); Mucus,Urine FEW /HPF; Urobilinogen,Urine < 2.0 mg/dL (<2.0)
[2019-06-28 17:31] LABS: Amphetamine Screen,Urine PRESUMPTIVE NEGATIVE; Benzodiazepines Screen,Urine PRESUMPTIVE NEGATIVE; Cannabinoid Screen,Urine PRESUMPTIVE NEGATIVE; Cocaine Screen,Urine PRESUMPTIVE NEGATIVE; Methadone Screen,Urine PRESUMPTIVE NEGATIVE; Opiate Screen,Urine PRESUMPTIVE NEGATIVE; RBC,Urine > 182.0 /HPF (0.0-6.0)
[2019-06-28] MEDS ORDERED: LACTATED RINGERS 1,000 ML IV SCH (18:00)
[2019-06-28 18:18] LABS: Basophils % (Auto) 0.3 % (0.0-1.8); Eosinophils % (Auto) 0.4 % (0.0-4.3); Hematocrit 32.1 % (30.3-42.9); Hemoglobin 10.7 gm/dl (10.1-14.3); Lymphocytes # (Auto) 1.6 K/mm3 (1.2-5.4); Lymphocytes % (Auto) 13.6 % (13.4-35.0); Mean Corpuscular HGB Conc 33 % (30-34); Mean Corpuscular Volume 88 fl (79-97); Monocytes # (Auto) 0.7 K/mm3 (0.0-0.8); Monocytes % (Auto) 5.5 % (0.0-7.3); Platelet Count 225 K/mm3 (140-440); Red Blood Count 3.63 M/mm3 (3.65-5.03); Red Cell Distribution Width 14.8 % (13.2-15.2)
[2019-06-28 19:58] VITALS: BP 103/63
[2019-06-28] MEDS ORDERED: ACETAMINOPHEN 325 MG TAB PO ONE (20:19)
--- NOTE | 2019-06-28 22:29 | Ultrasound Report ---
US OB BPP wo non-stress, US OB limited INDICATION / CLINICAL INFORMATION: labor. COMPARISON: 05/18/2015 FINDINGS: Single, viable intrauterine in cephalic presentation. heart rate 137. Placenta is posterior and free of the cervical os. A small, hypoechoic area was demonstrated in the p lacenta on the left, measuring approximately 2 cm x 1.5 cm x 0.5 cm. This area is within the placenta , and the appearance is not typical for abruption or subchorionic hemorrhage. IMPRESSION: 1. Single, viable intrauterine . 2. Small, low-attenuation lesion within the placenta, as described. Appearance is not typical for abr uption or subchorionic hemorrhage. Suggest follow-up. Signer Name: Sudeep Pratt MD Signed: 06/28/2019 10:25 PM Workstation Name: [id number]
== END 2019-06-28 21:30 | disposition home or self-care (01) ==
LOC: LD 15:56 → TRG 15:56
PROVIDERS: ATTEND Obstetrics & Gynecology
DX: O46.92 Antepartum hemorrhage, unspecified, second trimester (principal); O60.02 Preterm labor without delivery, second trimester; O99.512 Diseases of the respiratory system complicating pregnancy, second trimester; J45.909 Unspecified asthma, uncomplicated; Z3A.20 20 weeks gestation of pregnancy; W19.XXXA Unspecified fall, initial encounter; Y93.89 Activity, other specified; Y92.009 Unspecified place in unspecified non-institutional (private) residence as the place of occurrence of the external cause; Y99.8 Other external cause status
CPT/HCPCS: 36415; 76815; 76819; 80307; 81001; 85025; 85460; 86850; 86900; 86901; J7120

== ENCOUNTER 2019-09-04 19:30 | Outpatient (CLI) | payer MEDICAID ==
[2019-09-04] MEDS ORDERED: TERBUTALINE 1 MG/1 ML INJ SUB-Q PRN (20:06)
[2019-09-04] MEDS ORDERED: LACTATED RINGERS 1,000 ML IV ONE (20:06)
[2019-09-04] MEDS ORDERED: ONDANSETRON 4 MG/2 ML INJ IV PRN (20:06)
[2019-09-04] MEDS ORDERED: BUTORPHANOL 2 MG/1 ML INJ IV ONE (20:40)
[2019-09-04] MEDS ORDERED: LACTATED RINGERS 1,000 ML IV SCH (21:00)
[2019-09-04 21:16] LABS: Basophils % (Auto) 0.3 % (0.0-1.8); Eosinophils # (Auto) 0.1 K/mm3 (0.0-0.4); Eosinophils % (Auto) 0.8 % (0.0-4.3); Hematocrit 31.2 % (30.3-42.9); Hemoglobin 10.5 gm/dl (10.1-14.3); Lymphocytes # (Auto) 2.2 K/mm3 (1.2-5.4); Lymphocytes % (Auto) 21.7 % (13.4-35.0); Mean Corpuscular HGB Conc 34 % (30-34); Mean Corpuscular Volume 87 fl (79-97); Monocytes # (Auto) 0.6 K/mm3 (0.0-0.8); Monocytes % (Auto) 5.5 % (0.0-7.3); Platelet Count 230 K/mm3 (140-440); Red Blood Count 3.57 M/mm3 (3.65-5.03); Red Cell Distribution Width 13.8 % (13.2-15.2)
[2019-09-04 22:29] LABS: Bilirubin,Urine NEG (Negative); Blood,Urine NEG (Negative); Color,Urine Yellow (Yellow); Mucus,Urine FEW /HPF; Protein,Urine <15 mg/dL mg/dL (Negative); Urobilinogen,Urine < 2.0 mg/dL (<2.0)
[2019-09-04 22:36] VITALS: BP 99/55
[2019-09-04 22:36] LABS: Amphetamine Screen,Urine PRESUMPTIVE NEGATIVE; Benzodiazepines Screen,Urine PRESUMPTIVE NEGATIVE; Cannabinoid Screen,Urine PRESUMPTIVE NEGATIVE; Cocaine Screen,Urine PRESUMPTIVE NEGATIVE; Methadone Screen,Urine PRESUMPTIVE NEGATIVE; Opiate Screen,Urine PRESUMPTIVE NEGATIVE
== END 2019-09-04 22:49 | disposition home or self-care (01) ==
LOC: TRG 19:30
PROVIDERS: ATTEND Obstetrics & Gynecology
DX: O62.9 Abnormality of forces of labor, unspecified (principal); O21.2 Late vomiting of pregnancy; O26.893 Other specified pregnancy related conditions, third trimester; R19.7 Diarrhea, unspecified; R50.9 Fever, unspecified; Z3A.30 30 weeks gestation of pregnancy
CPT/HCPCS: 36415; 80307; 81001; 85025; 86592; 86850; 86900; 86901; 96361; 96365; 96375; J0595; J0690; J7120; 96360; J2405; J3105

== ENCOUNTER 2019-09-23 01:12 | Outpatient (CLI) | payer MEDICAID ==
[2019-09-23] MEDS ORDERED: LACTATED RINGERS 1,000 ML ONE (01:46)
[2019-09-23 02:01] VITALS: BP 121/60
[2019-09-23] MEDS ORDERED: LACTATED RINGERS 1,000 ML IV ONE ×2 (02:06→02:24)
[2019-09-23 02:51] LABS: Hematocrit 31.5 % (30.3-42.9); Hemoglobin 10.4 gm/dl (10.1-14.3); Mean Corpuscular HGB Conc 33 % (30-34); Mean Corpuscular Volume 88 fl (79-97); Red Blood Count 3.57 M/mm3 (3.65-5.03)
[2019-09-23 02:54] LABS: Platelet Count 260 K/mm3 (140-440)
== END 2019-09-23 06:12 | disposition home or self-care (01) ==
LOC: TRG 01:12 → LD 01:31 → TRG 06:12
PROVIDERS: ATTEND Obstetrics & Gynecology
DX: O62.9 Abnormality of forces of labor, unspecified (principal); O99.513 Diseases of the respiratory system complicating pregnancy, third trimester; J45.909 Unspecified asthma, uncomplicated; Z3A.33 33 weeks gestation of pregnancy
CPT/HCPCS: 36415; 85027; 86592; 86850; 86900; 86901; 96360; J7120

== ENCOUNTER 2019-10-10 18:16 | Outpatient (CLI) | payer MEDICAID ==
[2019-10-10 18:27] VITALS: BP 110/66
[2019-10-10 20:40] LABS: Bilirubin,Urine NEG (Negative); Blood,Urine NEG (Negative); Color,Urine Straw (Yellow); Protein,Urine <15 mg/dL mg/dL (Negative); Urobilinogen,Urine < 2.0 mg/dL (<2.0)
--- NOTE | 2019-10-10 22:10 | Event Note ---
24 year old presents to triage to rule out labor. Patient states she has had some irregular mild contractions today that have resolved. Patient reports she had seen a small amount of blood when wiping today; states she does not have this symptom now. Patient denies leaking of fluid. Patient reports active movement. No dysuria. By patient's reported EDC of 11/09/2019 she is 35 weeks, 5 days gestation. Patient reports she has had some lower pelvic pain for the past week. NST/EFM reactive/category 1. Abdomen soft, nontender. No contractions palpated. SSE: no bleeding, no leaking of fluid seen. Cervix closed, thick, high. BPP 8/8, normal RUPA. Consulted with Dr. Muñoz re: this patient and she states OK to discharge patient home. Discussed with patient discharge in structions, need to follow up at [facility] tomorrow, and need to count movements daily. Patient voiced understanding.
--- NOTE | 2019-10-10 23:06 | Ultrasound Report ---
US OB BPP wo non-stress, US OB limited INDICATION / CLINICAL INFORMATION: BPP/RUPA. COMPARISON: 06/28/2019 FINDINGS: A single live fetus of approximately 35 weeks 2 days gestational age is seen in cephalic presentation . RUPA is 12.8 and heart rate is 141. BPP is 8 of 8 IMPRESSION: Single live fetus in cephalic presentation. RUPA is 12.8 and heart rate is 141. BPP is 8 out of 8 Signer Name: Terence Vidales MD FACR Signed: 10/10/2019 11:01 PM Workstation Name: [id number]
== END 2019-10-10 21:52 | disposition home or self-care (01) ==
LOC: TRG 18:16
PROVIDERS: ATTEND Obstetrics & Gynecology
DX: O26.851 Spotting complicating pregnancy, first trimester (principal); O62.9 Abnormality of forces of labor, unspecified; O99.513 Diseases of the respiratory system complicating pregnancy, third trimester; J45.909 Unspecified asthma, uncomplicated; Z3A.35 35 weeks gestation of pregnancy
CPT/HCPCS: 76815; 76819; 81001; 96360

== ENCOUNTER 2019-10-13 12:50 | Outpatient (CLI) | payer MEDICAID ==
[2019-10-13 13:05] VITALS: BP 105/59
[2019-10-13] MEDS ORDERED: LACTATED RINGERS 1,000 ML ONE (13:21)
[2019-10-13] MEDS ORDERED: LACTATED RINGERS 1,000 ML IV ONE (13:27)
== END 2019-10-13 15:03 | disposition home or self-care (01) ==
LOC: TRG 12:50
PROVIDERS: ATTEND Obstetrics & Gynecology
DX: O21.2 Late vomiting of pregnancy (principal); O47.03 False labor before 37 completed weeks of gestation, third trimester; Z3A.36 36 weeks gestation of pregnancy
CPT/HCPCS: 59025; 96360; J7120